=== PATIENT | male | born 1945 | race American Indian/Alaskan Native ===

== ENCOUNTER 2016-11-03 09:15 | Outpatient (CLI) | payer MEDICARE ==
--- NOTE | 2016-11-04 09:13 | Ultrasound Report ---
ULTRASOUND RENAL BILATERAL: HISTORY: Renal mass. TECHNIQUE: Transabdominal ultrasound with color Doppler interrogation. COMPARISON: Renal ultrasounds dated 03/19/10 and 04/17/13. FINDINGS: The right kidney is slightly atrophic with increased echotexture measuring 8.3 x 4.2 x 4.2 cm. There is no evidence for right renal cyst, mass, calculus or hydronephrosis. The left kidney is normal size, contour and echotexture measuring 10.6 x 4.1 x 4.7 cm. A 2.3 x 1.5 x 1.6 cm cyst at the superior pole of the left kidney is unchanged. No left renal mass, calculus or hydronephrosis. There is moderate enlargement of the prostate gland. Mild trabeculation of the bladder wall. No bladder mass or filling defect appreciated. IMPRESSION: Atrophic right kidney. No significant change in the cyst at the superior pole of the left kidney. No renal mass is demonstrated. Enlarged prostate gland. No significant change since 04/17/13.
== END 2016-11-03 09:16 | disposition home or self-care (01) ==
LOC: US 09:15
PROVIDERS: ATTEND Urology
DX: N28.1 Cyst of kidney, acquired (principal); N40.0 Benign prostatic hyperplasia without lower urinary tract symptoms; N26.1 Atrophy of kidney (terminal); N28.89 Other specified disorders of kidney and ureter
CPT/HCPCS: 76770

== ENCOUNTER 2017-05-18 08:59 | Outpatient (CLI) | payer MEDICARE ==
[2017-05-18] MEDS ORDERED: NACL ONE (09:46)
[2017-05-18 09:54] LABS: Blood Urea Nitrogen 14 mg/dL (9-20)
--- NOTE | 2017-05-18 11:28 | Cat Scan Report ---
CT SCAN OF THE ABDOMEN AND PELVIS WITHOUT AND WITH CONTRAST: HISTORY: Hematuria. TECHNIQUE: Helical CT before and after IV contrast. Sagittal and coronal reformatted images. Comparison: Ultrasound renal bilateral performed 11/03/16. FINDINGS: The right kidney is slightly atrophic measuring 8.3 cm in length. Left kidney measures 9.5 cm in length. There are a few millimetric calyceal stones in both kidneys on the precontrast images. There is also suggestion of a small amount of blood or previous IV contrast agent in the renal pelvises. Following IV contrast there are a few scattered simple cysts in both kidneys with the largest measuring 2 cm at the superior pole left kidney. No renal mass. The ureters are normal course and caliber. No ureteral stones are appreciated. The bladder is unremarkable. There is moderate enlargement of the prostate gland measures 6.0 x 5.5 x 5.5 cm. The liver is normal size and contour. 1 cm right hepatic lobe hemangioma is noted. The biliary system, pancreas, spleen, adrenal glands and aorta are unremarkable. The bowel loops are normal caliber and wall thickness. Normal appendix. No evidence for acute inflammation, adenopathy, ascites or free air. Heart size is normal. The visualized lung bases are clear. The bony structures are intact. IMPRESSION: Bilateral nonobstructing calyceal stones. No obstructive uropathy or ureteral stones. Slightly atrophic right kidney. Scattered simple renal cysts. Enlarged prostate gland, correlate with PSA levels.
== END 2017-05-18 09:00 | disposition home or self-care (01) ==
LOC: CT 08:59
PROVIDERS: ATTEND Urology
DX: N20.0 Calculus of kidney (principal); N28.1 Cyst of kidney, acquired; N26.1 Atrophy of kidney (terminal); N40.0 Benign prostatic hyperplasia without lower urinary tract symptoms; D18.09 Hemangioma of other sites
CPT/HCPCS: 36415; 74178; 82565; 84520; Q9967

== ENCOUNTER 2017-10-31 07:02 | Outpatient (CLI) | payer MEDICARE ==
[2017-10-31 07:29] LABS: Blood Urea Nitrogen 10 mg/dL (9-20)
--- NOTE | 2017-10-31 08:17 | Ultrasound Report ---
ULTRASOUND RENAL BILATERAL INDICATION: Cyst of kidney. COMPARISON: May 2017 CT and November 2016 ultrasound. FINDINGS: Renal sonography demonstrates top normal renal cortical echogenicity. Preserved contours. No hydronephrosis. RIGHT KIDNEY measures 9.1 x 5.2 x 3.3 cm with cortical thickness of 1.1 cm. A 0.8 cm right upper renal cortical cyst, image 5, also noted on prior CT. LEFT KIDNEY is 10.9 x 2.8 x 2.9 cm with cortical thickness of 1 cm. An upper cortical cyst again noted, now approximately 2 x 2.3 x 3.1 cm, image 24. Urinary bladder intrinsically grossly unremarkable with enlarged prostatic soft tissue impression at its base, image 23. CONCLUSION: 1. No acute renal sonographic abnormality with bilateral renal cysts, as described. 2. Enlarged prostate that may be correlated for clinically and with PSA, as appropriate. Thank you for the opportunity to participate in this patient's care.
== END 2017-10-31 07:03 | disposition home or self-care (01) ==
LOC: US 07:02
PROVIDERS: ATTEND Urology
DX: N28.1 Cyst of kidney, acquired (principal); N40.0 Benign prostatic hyperplasia without lower urinary tract symptoms
CPT/HCPCS: 36415; 76770; 82565; 84520